=== PATIENT | male | born 1970 | race Caucasian/White ===

== ENCOUNTER 2019-06-13 02:59 | Emergency (ER) | payer MEDICAID ==
[~2019-06-13] VITALS: Ht 177.8 cm; Wt 72.6 kg
--- NOTE | 2019-06-13 03:28 | NUR ---
Patient discharged to home in stable conditon. Written and verbal after care instructions given. Patient verbalizes understanding of instructions.
== END 2019-06-13 03:29 | disposition home or self-care (01) ==
LOC: ER 02:59
DX: K11.20 Sialoadenitis, unspecified (principal); F12.10 Cannabis abuse, uncomplicated; F17.200 Nicotine dependence, unspecified, uncomplicated; Z88.5 Allergy status to narcotic agent
CPT/HCPCS: A4663

== ENCOUNTER 2020-01-24 08:54 | Emergency (ER) | payer MEDICAID ==
[~2020-01-24] VITALS: Ht 177.8 cm; Wt 72.6 kg
--- NOTE | 2020-01-24 09:06 | NUR ---
Dr Xiong at the bedside for MSE.
[2020-01-24] MEDS ORDERED: CEphaleXIN 500 MG CAPSULE PO ONE (09:15)
[2020-01-24] MEDS ORDERED: DOXYCYCLINE HYCLATE 100 MG TABLET PO ONE (09:15)
[2020-01-24] MEDS ORDERED: DOXYCYCLINE HYCLATE 100 MG TABLET ONE (09:19)
[2020-01-24] MEDS ORDERED: CEphaleXIN 500 MG CAPSULE ONE (09:20)
--- NOTE | 2020-01-24 09:33 | NUR ---
Patient discharged to home in stable condition. Written and verbal after care instructions given. Patient verbalizes understanding of instructions. Stressed follow up or return to ER for worsening s/s.
[2020-01-24 09:34] VITALS: BP 147/98
== END 2020-01-24 09:34 | disposition home or self-care (01) ==
LOC: ER 08:54
DX: L03.211 Cellulitis of face (principal); R03.0 Elevated blood-pressure reading, without diagnosis of hypertension; F17.200 Nicotine dependence, unspecified, uncomplicated; Z88.5 Allergy status to narcotic agent
CPT/HCPCS: A4663